=== PATIENT | male | born 1975 | race Caucasian/White ===

== ENCOUNTER 2016-08-12 07:27 | Emergency (ER) | payer OTHER ==
[~2016-08-12] VITALS: Ht 175.3 cm; Wt 84.4 kg
[2016-08-12] MEDS ORDERED: HYDROcodone/APAP 5/325MG 1 TAB TABLET PO ONE (07:50)
--- NOTE | 2016-08-12 07:50 | PHYS DOC ---
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 Patient was trying to avoid a collision and tried to roll/dive a landing and landed on his right shoulder. Patient is right-handed. He denies previous right shoulder problems or injury. He denies head or neck injury. He denies injury elsewhere. The patient drove himself here but his can come pick him up. Review of Systems Review of Systems Constitutional: Denies fever or chills [] Respiratory: Denies shortness of breath [] Cardiovascular: Denies chest pain or injury GI: Denies abdominal pain or injury Musculoskeletal: Denies back pain or neck pain Neurologic: Denies numbness or weakness of arms Current Medications Current Medications Current Medications Medications (Trade) Dose Ordered Sig/Leticia Start Time Stop Time Status Last Admin Dose Admin Acetaminophen/ Hydrocodone Bitart (Lortab 5/325) 1 tab 1X ONCE 08/12/16 07:45 08/12/16 07:46 UNV Allergies Allergies Allergies Coded Allergies Type Severity Reaction Last Updated Verified sulfamethoxazole Allergy Unknown 10/17/14 No trimethoprim Allergy Unknown 10/17/14 No Physical Exam Physical Exam Constitutional: Well developed, well nourished, no acute distress, non-toxic appearance. Ambulatory, holds his right arm tucked to his side and right elbow flexed. HENT: Normocephalic, atraumatic, bilateral external ears normal, nose normal. [] Eyes: conjunctiva normal, no discharge. [] Neck: Normal range of motion, no tenderness, supple, no stridor. [] Skin: Warm, dry, no erythema, no rash. [] Back: No tenderness, no CVA tenderness. [] Extremities: Right shoulder: Soft tissue swelling over the lateral clavicle. Shoulder joint does not appear deformed or swollen. There is mild abrasion over the lateral shoulder. Humerus, elbow, forearm, wrist, hand nontender to palpation. Distal pulses strong. Good strength in the hand. Neurologic: Alert and oriented X 3, normal motor function, normal sensory function, no focal deficits noted. [] EKG EKG [] Radiology/Procedures Radiology/Procedures X-rays of the right clavicle and right shoulder read by me. Displaced fracture of the distal clavicle. No humerus or scapula or rib abnormality is identified. [] Course & Med Decision Making Course & Med Decision Making Pertinent Labs and Imaging studies reviewed. 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 I offered the patient a pain pill, he said his can come pick him up , I don't want him driving anyway with his right arm injured. We will check some x-rays. X-rays of the distal clavicle. The patient was placed in a sling and given an ice pack. See instructions for plan. X-rays were provided on a disc. [] Dragon Disclaimer Dragon Disclaimer This chart was dictated in whole or in part using Voice Recognition software in a busy, high-work load, and often noisy Emergency Department environment. It may contain unintended and wholly unrecognized errors or omissions. Departure Departure: Impression: Primary Impression: Closed right clavicular fracture Disposition: 01 HOME, SELF-CARE Condition: STABLE Referrals: DEV RUTHERFORD DO, M[facility] (PCP) Patient Instructions: Clavicle Fracture Additional Instructions: Wear the sling until you are told otherwise by orthopedics. [facility] let [facility] know your diagnosis and make a follow-up appointment sometime within the next week. Ice to the area as much as possible. Ibuprofen 800 mg every 6-8 hours as needed for pain. For more severe pain, hydrocodone as prescribed. This will cause sedation and constipation. Not while working or driving. Ibuprofen and hydrocodone may be combined. No driving until you are released to drive by orthopedics. Scripts Hydrocodone Bit/Acetaminophen (NORCO 5-325 TABLET) 1 Each Tablet 1-2 TAB PO Q4-6HRS for clavicle fracture, #20 TAB Prov: ROBERTA CAUSEY MD 08/12/16 ROBERTA CAUSEY MD Aug 12, 2016 07:50
--- NOTE | 2016-08-12 08:05 | RAD ---
Indication: Fall onto right shoulder. Time of exam 0757 hours. 2 views of the right clavicle demonstrate a fracture of the distal clavicle. Minimal inferior displacement of the distal fracture fragment is seen but the distal fragment does maintain a normal alignment with the acromion. No separation is identified. Glenohumeral alignment is normal. Impression: Distal clavicle fracture, as described.
--- NOTE | 2016-08-12 08:05 | RAD ---
Indication: Fall and right shoulder pain. Time of exam 0754 hours. 3 views of the right shoulder were obtained. The glenohumeral alignment is normal. There is a fracture of the distal clavicle. Acromioclavicular alignment is maintained. The acromiohumeral space is normal. Impression: Distal clavicle fracture.
[2016-08-12] MEDS ORDERED: HYDR-971 PO (08:20)
[2016-08-12 08:35] VITALS: BP 133/86
== END 2016-08-12 08:40 | disposition home or self-care (01) ==
LOC: ER 07:27
DX: S42.031A Displaced fracture of lateral end of right clavicle, initial encounter for closed fracture (principal); Z88.1 Allergy status to other antibiotic agents; W19.XXXA Unspecified fall, initial encounter; Y93.74 Activity, frisbee; Y99.8 Other external cause status; Y92.89 Other specified places as the place of occurrence of the external cause
CPT/HCPCS: 73000; 73030; 99284-25

== ENCOUNTER 2020-12-09 18:57 | Emergency (ER) | payer OTHER ==
[~2020-12-09] VITALS: Ht 175.3 cm; Wt 93.0 kg
[~2020-12-09 18:57] MED LIST: HYDR-3165 PO
[2020-12-09 19:00] VITALS: BP 141/81
[2020-12-09] MEDS ORDERED: LIDOCAINE 1% Multi-Dose 20 ML VIAL. IJ ONE (20:30)
[2020-12-09] MEDS ORDERED: DIPH,PERTUSS(ACELL),TET VAC/PF 0.5 ML SYRINGE. VAX IM ONE (20:45)
--- NOTE | 2020-12-09 21:46 | PHYS DOC ---
Past History Past Medical History: No Pertinent History (NANCY PAIGE APRN) Past Surgical History: Other (NANCY PAIGE APRN) Alcohol Use: Occasionally Drug Use: None (NANCY PAIGE APRN) General Adult EDM: Chief Complaint: LACERATION/AVULSION HPI: HPI: Patient is a 45-year-old male that presents today with laceration to the right hand third distal finger. Patient states that he was trying to catch a vase that had fallen off the table and when he caught it the vase broke and he was cut by pieces of the vase. Patient unsure of what last tetanus shot was. 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 (NANCY PAIGE APRN) Review of Systems: Review of Systems: Constitutional: Denies fever or chills Eyes: Denies change in visual acuity HENT: Denies nasal congestion or sore throat Respiratory: Denies cough or shortness of breath Cardiovascular: Denies chest pain or edema GI: Denies abdominal pain, nausea, vomiting, bloody stools or diarrhea : Denies dysuria Musculoskeletal: Laceration to right hand third finger Integument: Denies rash Neurologic: Denies headache, focal weakness or sensory changes Endocrine: Denies polyuria or polydipsia Lymphatic: Denies swollen glands Psychiatric: Denies depression or anxiety (NANCY PAIGE APRN) Current Medications: Current Meds: Current Medications Medications (Trade) Dose Ordered Sig/Leticia Start Time Stop Time Status Last Admin Dose Admin Diphtheria/ Pertussis/Tetanus Vacc (ADACEL TDap SYRINGE) 0.5 ml ONCE ONCE 12/09/20 20:45 12/09/20 20:46 DC Lidocaine HCl 20 ml 1X ONCE 12/09/20 20:30 12/09/20 20:31 DC (NANCY PAIGE APRN) Allergies: Allergies: Allergies Coded Allergies Type Severity Reaction Last Updated Verified sulfamethoxazole Allergy Unknown 10/17/14 No trimethoprim Allergy Unknown 10/17/14 No (NANCY PAIGE APRN) Physical Exam: PE: Constitutional: Well developed, well nourished, no acute distress, non-toxic appearance. [] HENT: Normocephalic, atraumatic, bilateral external ears normal, oropharynx moist, no oral exudates, nose normal. [] Eyes: PERRLA, EOMI, conjunctiva normal, no discharge. [] Neck: Normal range of motion, no tenderness, supple, no stridor. [] Cardiovascular:Heart rate regular rhythm, no murmur [] Lungs & Thorax: Bilateral breath sounds clear to auscultation [] Abdomen: Bowel sounds normal, soft, no tenderness, no masses, no pulsatile masses. [] Skin: Warm, dry, no erythema, no rash. [] Back: No tenderness, no CVA tenderness. [] Extremities: 1 cm laceration noted to right hand third finger, scant amount of bleeding noted, sensation and motor function is intact distal to injury. No injury to nail bed is noted. Small abrasion noted to second finger proximal end no active bleeding noted, abrasion noted to inner wrist no active bleeding noted Neurologic: Alert and oriented X 3, normal motor function, normal sensory function, no focal deficits noted. [] Psychologic: Affect normal, judgement normal, mood normal. [] (NANCY PAIGE APRN) EKG: EKG: [] (NANCY PAIGE APRN) Radiology/Procedures: Radiology/Procedures: Indication: 1cm laceration to 3rd finger right hand-distal Procedure: The patient was placed in the appropriate position and anesthesia around the the tip of the third finger on the right hand. the area was then cleaned with Betadine, irrigated with normal saline 50 mL . the laceration was 3 individual sutures were placed using 4-0 Ethilon. the wound area was then dressed with tube gauze Total repaired wound length: 1cm The patient tolerated the procedure tolerated well Complications: None (NANCY PAIGE APRN) Heart Score: C/O Chest Pain: N/A Risk Factors: Risk Factors: DM, Current or recent (<one month) smoker, HTN, HLP, family history of CAD, obesity. Risk Scores: Score 0 - 3: 2.5% MACE over next 6 weeks - Discharge Home Score 4 - 6: 20.3% MACE over next 6 weeks - Admit for Clinical Observation Score 7 - 10: 72.7% MACE over next 6 weeks - Early Invasive Strategies (NANCY PAIGE APRN) Course & Med Decision Making: Course & Med Decision Making Pertinent Labs and Imaging studies reviewed. (See chart for details) Laceration repaired completed, dressing with tube gauze to be left on for 24 hours after that patient may use [id number] Band-Aid, clean wound twice daily with mild soap and water, watch for signs and symptoms of infection return in 7 days for suture removal (NANCY PAIGE APRN) Dragon Disclaimer: Dragon Disclaimer: This electronic medical record was generated, in whole or in part, using a voice recognition dictation system. (NANCY PAIGE FISHER TERRAPIN) Departure Departure: Impression: Primary Impression: Laceration of finger of right hand Qualified Codes: S61.212A - Laceration without foreign body of right middle finger without damage to nail, initial encounter Disposition: HOME / SELF CARE / HOMELESS Condition: STABLE Referrals: PCP,UNKNOWN (PCP) Patient Instructions: Fingertip Laceration, Laceration Care, Adult Additional Instructions: Clean wound twice daily with mild soap and water, do not submerge wound until completely healed Return or follow-up with primary care for suture removal in 7 days Tylenol and/or ibuprofen as needed for pain Leave tube gauze dressing in place for the next 24 hours and then may use a Band-Aid for covering of wound. Return to the emergency department for any signs and symptoms of infection, fever chills, inability to use finger Attending Signature Attending Signature I have participated in the care of this patient and I have reviewed and agree with all pertinent clinical information above including history, exam, and recommendations. (FLORES LI MD) NANCY PAIGE APRN Dec 09, 2020 21:46 FLORES LI MD Dec 13, 2020 18:19
== END 2020-12-09 22:10 | disposition home or self-care (01) ==
LOC: ER 18:57
DX: S61.212A Laceration without foreign body of right middle finger without damage to nail, initial encounter (principal); Z88.2 Allergy status to sulfonamides; Z88.1 Allergy status to other antibiotic agents; W25.XXXA Contact with sharp glass, initial encounter; Y93.89 Activity, other specified; Y92.89 Other specified places as the place of occurrence of the external cause; Y99.8 Other external cause status
CPT/HCPCS: 12001; 90471; 90715; 99283